=== PATIENT | female | born 1990 | race Caucasian/White ===

== ENCOUNTER 2017-09-07 07:15 | Emergency (ER) | payer OTHER ==
[~2017-09-07] VITALS: Ht 172.7 cm; Wt 68.5 kg
[2017-09-07 07:59] LABS: HEMATOCRIT 42.4 % (34.6-47.8); HEMOGLOBIN 14.4 g/dL (11.7-16.4); WHITE BLOOD COUNT 9.4 x10^3/uL (3.4-10)
[2017-09-07] MEDS ORDERED: SODIUM CHLORIDE 0.9% 1,000ML IVBOLUS ONE (08:00)
[2017-09-07] MEDS ORDERED: SODIUM CHLORIDE FLUSH 10ML SYR IVF ONE (08:00)
[2017-09-07 08:12] LABS: ASPARTATE AMINO TRANSFERASE 15 U/L (15-37); BLOOD UREA NITROGEN 10 mg/dL (7-18)
[2017-09-07 08:42] VITALS: BP 112/73
== END 2017-09-07 10:07 | disposition home or self-care (01) ==
LOC: ED 08:53
DX: O03.9 Complete or unspecified spontaneous abortion without complication (principal)
CPT/HCPCS: 36415; 76801; 80053; 81001; 84702; 85025; 86901; 87086; 96360; 99285; J7030

== ENCOUNTER 2020-03-15 16:38 | Outpatient (CLI) | payer OTHER ==
[~2020-03-15] VITALS: Ht 175.3 cm; Wt 75.9 kg
[2020-03-15] MEDS ORDERED: LACTATED RINGERS 1,000 ML IVBOLUS ONE (17:00)
[2020-03-15] MEDS ORDERED: LACTATED RINGERS 1,000 ML IV SCH (17:00)
[2020-03-15 17:21] VITALS: BP 123/77
[2020-03-15 17:42] LABS: MICROSCOPIC INDICATED
== END 2020-03-15 18:25 | disposition home or self-care (01) ==
LOC: LDOP 16:38
PROVIDERS: ATTEND Student in an Organized Health Care Education/Training Program
DX: O41.03X1 Oligohydramnios, third trimester, fetus 1 (principal); Z3A.31 31 weeks gestation of pregnancy
CPT/HCPCS: 59025; 81001; 84112; 87086; 96360; 99201; J7120; G0463

== ENCOUNTER 2020-04-13 13:27 | Outpatient (CLI) | payer OTHER ==
[~2020-04-13] VITALS: Ht 175.3 cm; Wt 80.0 kg
[2020-04-13 13:34] VITALS: BP 115/66
== END 2020-04-13 14:20 | disposition home or self-care (01) ==
LOC: LDOP 13:27
PROVIDERS: ATTEND Student in an Organized Health Care Education/Training Program
DX: Z36.9 Encounter for antenatal screening, unspecified (principal); Z3A.35 35 weeks gestation of pregnancy
CPT/HCPCS: 59025

== ENCOUNTER 2020-04-19 10:26 | Inpatient (IN) | payer OTHER ==
[~2020-04-19] VITALS: Ht 175.3 cm; Wt 80.0 kg
[2020-04-19 11:18] VITALS: BP 123/77
[2020-04-19] MEDS ORDERED: BETAMETHASONE 6 MG/ML, 5ML IM ONE (11:54)
[2020-04-19] MEDS: BETAMETHASONE 6 MG/ML, 5ML IM SCH (11:59)
[2020-04-19 13:51] LABS: BASOPHILS # (AUTO) 0.03 x10^3/uL (0-0.1); BASOPHILS % (AUTO) 0 % (0-1); EOSINOPHILS # (AUTO) 0.03 x10^3/uL (0-0.4); EOSINOPHILS % (AUTO) 0 % (1-7); LYMPHOCYTES # (AUTO) 1.23 x10^3/uL (1-3.4); LYMPHOCYTES % (AUTO) 11 % (22-44); MD NO; MEAN CORPUSCULAR HEMOGLOBIN 32.5 pg (27.0-34.8); MEAN CORPUSCULAR HGB CONC 33.1 g/dL (32.4-35.8); MEAN PLATELET VOLUME 6.6 fL (7.4-10.4); MONOCYTES # (AUTO) 0.39 x10^3/uL (0.2-0.8); MONOCYTES % (AUTO) 3 % (2-9); NEUTROPHILS # (AUTO) 9.71 x10^3/uL (1.8-6.8); NEUTROPHILS % (AUTO) 85 % (42-75); PLATELET COUNT 203 x10^3/uL (130-400); RED BLOOD COUNT 4.13 x10^6/uL (3.82-5.3)
[2020-04-19] MEDS ORDERED: NEWBORN KIT ONE (16:53)
[2020-04-19 19:34] VITALS: BP 107/69
[2020-04-20] MEDS ORDERED: CALCIUM CARBONATE 500 MG TAB.CHEW ONE (01:15)
[2020-04-20] MEDS ORDERED: CALCIUM CARBONATE 500 MG TAB.CHEW PO PRN ×2 (01:30→18:30)
[2020-04-20] MEDS ORDERED: FAMOTIDINE 20 MG/2 ML IVPush ONE (03:30)
[2020-04-20] MEDS ORDERED: LACTATED RINGERS 1,000 ML IV SCH (12:00)
[2020-04-20] MEDS: BETAMETHASONE 6 MG/ML, 5ML IM SCH (12:05)
[2020-04-20] MEDS ORDERED: SODIUM CITRATE/CITRIC ACID 30 ML UDC ONE (12:41)
[2020-04-20] MEDS ORDERED: METOCLOPRAMIDE 5 MG/ML, 2ML ONE (12:41)
[2020-04-20] MEDS ORDERED: ACETAMINOPHEN 325 MG TABLET ONE (14:28)
[2020-04-20] MEDS ORDERED: ACETAMINOPHEN 325 MG TABLET PO PRN (14:30)
[2020-04-20] MEDS ORDERED: LACTATED RINGERS 1,000 ML IVBOLUS ONE (14:30)
[2020-04-20] MEDS ORDERED: OXYTOCIN 30U/ 0.9% NaCL 500ML 500 ML ONE (15:26)
[2020-04-20] MEDS ORDERED: METOCLOPRAMIDE 5 MG/ML, 2ML IV ONE (16:00)
[2020-04-20] MEDS ORDERED: SODIUM CITRATE/CITRIC ACID 30 ML UDC PO ONE (16:00)
[2020-04-20] MEDS ORDERED: morphine SULFATE/PF 0.5 MG/ML, 10ML ONE (16:33)
[2020-04-20] MEDS ORDERED: OXYTOCIN 10 UNITS/ML, 1ML ONE (16:35)
[2020-04-20] MEDS ORDERED: WATER-INJECTION,STERILE 10 ML IV ONE (16:35)
[2020-04-20] MEDS ORDERED: ONDANSETRON 2MG/ML, 2ML ONE (16:35)
[2020-04-20] MEDS ORDERED: KETOROLAC 30 MG/1 ML ONE (16:35)
[2020-04-20] MEDS ORDERED: CEFAZOLIN 1,000 MG ONE (16:35)
[2020-04-20] MEDS ORDERED: DEXAMETHASONE 4 MG/ML, 1ML ONE (16:35)
[2020-04-20] MEDS: LACTATED RINGERS 1,000 ML IV SCH ×2 (18:10→19:08)
[2020-04-20] MEDS ORDERED: ONDANSETRON 2MG/ML, 2ML IV PRN (18:30)
[2020-04-20] MEDS ORDERED: MISOPROSTOL 200 MCG TABLET PR PRN (18:30)
[2020-04-20] MEDS ORDERED: BISACODYL 10 MG SUPP PR PRN (18:30)
[2020-04-20] MEDS ORDERED: SIMETHICONE 80 MG CHEW TAB PO PRN (18:30)
[2020-04-20] MEDS: OXYTOCIN 30U/ 0.9% NaCL 500ML 500 ML IV SCH (19:08)
[2020-04-20] MEDS ORDERED: OXYcodone 5 MG/5 ML ORAL.SOL UDC ONE (19:29)
[2020-04-20] MEDS ORDERED: DEXTROSE 47%, 15GM GEL ONE (19:29)
[2020-04-20] MEDS ORDERED: OXYcodone 5 MG/5 ML ORAL.SOL UDC PO PRN (20:00)
[2020-04-20 20:20] VITALS: BP 100/62
[2020-04-20] MEDS: ACETAMINOPHEN 325 MG TABLET PO SCH (21:00)
[2020-04-20] MEDS ORDERED: OXYcodone/APAP 5/325MG TABLET PO PRN (22:30)
[2020-04-20] MEDS: OXYcodone/APAP 5/325MG TABLET PO PRN (22:37)
[2020-04-21 00:20] VITALS: BP 100/54
[2020-04-21] MEDS: KETOROLAC 30 MG/1 ML IV SCH ×5 (00:38→23:31)
[2020-04-21 01:50] LABS: MEAN CORPUSCULAR HEMOGLOBIN 32.4 pg (27.0-34.8); MEAN CORPUSCULAR HGB CONC 33.2 g/dL (32.4-35.8); MEAN CORPUSCULAR VOLUME 97.7 fL (80-100); MEAN PLATELET VOLUME 6.7 fL (7.4-10.4); PLATELET COUNT 186 x10^3/uL (130-400); RED BLOOD COUNT 2.97 x10^6/uL (3.82-5.3); RED CELL DISTRIBUTION WIDTH 12.8 % (9.6-15.2)
[2020-04-21 01:59] LABS: BASOPHILS # (AUTO) 0.01 x10^3/uL (0-0.1); BASOPHILS % (AUTO) 0 % (0-1); EOSINOPHILS % (AUTO) 0 % (1-7); LYMPHOCYTES # (AUTO) 1.27 x10^3/uL (1-3.4); LYMPHOCYTES % (AUTO) 8 % (22-44); MD SCAN; MONOCYTES % (AUTO) 6 % (2-9); NEUTROPHILS # (AUTO) 13.46 x10^3/uL (1.8-6.8); NEUTROPHILS % (AUTO) 86 % (42-75)
[2020-04-21] MEDS: LACTATED RINGERS 1,000 ML IV SCH ×5 (02:10→18:10)
[2020-04-21] MEDS: ACETAMINOPHEN 325 MG TABLET PO SCH ×5 (03:00→23:32)
[2020-04-21] MEDS: OXYTOCIN 30U/ 0.9% NaCL 500ML 500 ML IV SCH ×2 (04:10→14:10)
[2020-04-21 04:30] VITALS: BP 102/60
[2020-04-21] MEDS: OXYcodone/APAP 5/325MG TABLET PO PRN (04:35)
[2020-04-21 07:40] VITALS: BP 102/61
[2020-04-21] MEDS: PRENATAL VIT/IRON/FA 1 EACH TABLET PO SCH (07:44)
[2020-04-21] MEDS: DOCUSATE 100 MG CAPSULE PO PRN ×2 (07:44→20:00)
[2020-04-21] MEDS: OXYcodone IR 5MG TABLET PO PRN ×2 (11:19→20:00)
[2020-04-21 11:40] VITALS: BP 108/70
[2020-04-21 19:00] VITALS: BP 116/79
[2020-04-22] MEDS: LACTATED RINGERS 1,000 ML IV SCH ×6 (00:10→20:10)
[2020-04-22] MEDS: OXYTOCIN 30U/ 0.9% NaCL 500ML 500 ML IV SCH ×3 (00:10→20:10)
[2020-04-22] MEDS: OXYcodone IR 5MG TABLET PO PRN ×3 (01:48→17:59)
[2020-04-22] MEDS: ACETAMINOPHEN 325 MG TABLET PO SCH ×3 (05:39→18:00)
[2020-04-22] MEDS: KETOROLAC 30 MG/1 ML IV SCH ×3 (05:39→18:00)
[2020-04-22 06:44] LABS: BASOPHILS # (AUTO) 0.02 x10^3/uL (0-0.1); BASOPHILS % (AUTO) 0 % (0-1); EOSINOPHILS # (AUTO) 0.06 x10^3/uL (0-0.4); EOSINOPHILS % (AUTO) 1 % (1-7); LYMPHOCYTES # (AUTO) 2.68 x10^3/uL (1-3.4); LYMPHOCYTES % (AUTO) 25 % (22-44); MD NO; MEAN CORPUSCULAR HEMOGLOBIN 32.8 pg (27.0-34.8); MEAN CORPUSCULAR HGB CONC 32.9 g/dL (32.4-35.8); MEAN CORPUSCULAR VOLUME 99.6 fL (80-100); MEAN PLATELET VOLUME 6.7 fL (7.4-10.4); MONOCYTES # (AUTO) 0.89 x10^3/uL (0.2-0.8); MONOCYTES % (AUTO) 8 % (2-9); NEUTROPHILS # (AUTO) 7.17 x10^3/uL (1.8-6.8); NEUTROPHILS % (AUTO) 66 % (42-75); PLATELET COUNT 181 x10^3/uL (130-400); RED BLOOD COUNT 2.93 x10^6/uL (3.82-5.3); RED CELL DISTRIBUTION WIDTH 13.5 % (9.6-15.2)
[2020-04-22] MEDS: PRENATAL VIT/IRON/FA 1 EACH TABLET PO SCH (07:45)
[2020-04-22] MEDS: DOCUSATE 100 MG CAPSULE PO PRN (07:45)
[2020-04-22 07:50] VITALS: BP 108/66
[2020-04-22] MEDS: IBUPROFEN 600 MG TABLET PO SCH (18:00)
[2020-04-22 20:05] VITALS: BP 117/76
[2020-04-23] MEDS: IBUPROFEN 600 MG TABLET PO SCH ×4 (00:30→17:28)
[2020-04-23] MEDS: ACETAMINOPHEN 325 MG TABLET PO SCH ×4 (00:30→17:28)
[2020-04-23] MEDS: DOCUSATE 100 MG CAPSULE PO PRN ×2 (00:30→10:08)
[2020-04-23] MEDS: LACTATED RINGERS 1,000 ML IV SCH (02:10)
[2020-04-23 08:00] VITALS: BP 120/78
[2020-04-23] MEDS: PRENATAL VIT/IRON/FA 1 EACH TABLET PO SCH (10:08)
[2020-04-23] MEDS: OXYcodone IR 5MG TABLET PO PRN ×2 (10:08→17:28)
[2020-04-23] MEDS ORDERED: IBUP-1222 PO (10:52)
[2020-04-23] MEDS ORDERED: DOCU-131 PO (10:52)
[2020-04-23] MEDS ORDERED: ACET650S21 PO (10:53)
[2020-04-23] MEDS ORDERED: OXYC-302 PO (10:56)
== END 2020-04-23 17:20 | disposition home or self-care (01) | DRG 786 ==
LOC: LDOP 10:26 → LDIP 13:18 → UNDOADMIN 13:48 → LDIP 13:48 → 2NW 04-20 19:55
PROVIDERS: ADMIT Student in an Organized Health Care Education/Training Program; ATTEND Student in an Organized Health Care Education/Training Program
PROC: 10D00Z1 Extraction of Products of Conception, Low, Open Approach (ICD-10-PCS; principal; 2020-04-20)
DX: O41.03X0 Oligohydramnios, third trimester, not applicable or unspecified (principal); O60.14X0 Preterm labor third trimester with preterm delivery third trimester, not applicable or unspecified; D62 Acute posthemorrhagic anemia; O90.81 Anemia of the puerperium; O32.1XX0 Maternal care for breech presentation, not applicable or unspecified; O99.824 Streptococcus B carrier state complicating childbirth; Z20.828 Contact with and (suspected) exposure to other viral communicable diseases; Z37.0 Single live birth; Z3A.36 36 weeks gestation of pregnancy
CPT/HCPCS: 36415; J3490; 82803; 84112; 85025; 86592; 86850; 86900; 87081; 87635; 88307; G0378; J0690; J0702; J1100; J1885; J2274; J2405; J2590; J2765; J7120